=== PATIENT | male | born 1955 | race Two or more races ===

== ENCOUNTER 2019-02-18 16:30 | Inpatient (IN) | payer MEDICAID ==
[~2019-02-18] VITALS: Ht 170.2 cm; Wt 72.6 kg
[2019-02-18 20:13] LABS: CLARITY URINE CLEAR (CLEAR); COLOR URINE YELLOW (YELLOW); KETONES URINE TRACE (NEGATIVE); LEUKOCYTE ESTERASE URINE NEGATIVE (NEGATIVE); NITRITE URINE NEGATIVE (NEGATIVE); OCCULT BLOOD URINE NEGATIVE (NEGATIVE); PROTEIN URINE NEGATIVE (NEGATIVE); UROBILINOGEN URINE 0.2 E.U./dL (0.2-1.0)
[2019-02-18] MEDS ORDERED: SODIUM CHLORIDE 0.9% 1000ML BAG (SEPSIS BOLUS) IV ONE (20:30)
[2019-02-18] MEDS ORDERED: CEFTRIAXONE 1 G PREMIX 50 ML IV ONE (20:30)
[2019-02-18] MEDS ORDERED: ACETAMINOPHEN 325MG TABLET PO STA (20:30)
[2019-02-18 21:17] LABS: HEMOGLOBIN. 16.2 g/dL (14.0-18.0); MEAN CORPUSCULAR HEMOGLOBIN 30.4 pg (28.0-32.0); MEAN CORPUSCULAR VOLUME 86.3 fL (80.0-94.0); PLATELET 134 x1000/uL (130-400); RED BLOOD CELL COUNT 5.33 mill/uL (4.7-6.1); RED CELL DISTRIBUTION WIDTH 13.9 % (11.6-14.6)
[2019-02-18 21:24] LABS: CHLORIDE 101 mEq/L (98-107)
[2019-02-18 21:26] LABS: INR 1.1; PROTHROMBIN TIME 11.4 sec (9.6-11.0)
[2019-02-18 21:58] LABS: PLATELET ESTIMATE NORMAL
[2019-02-18] MEDS ORDERED: DEXAMETHASONE 10 MG/ML VIAL IV ONE (23:00)
[2019-02-18] MEDS ORDERED: MORPHINE SULFATE 4 MG/ML CPJ (NOT FOR IM USE) IV ONE (23:00)
[2019-02-18] MEDS ORDERED: CEFTRIAXONE 1 G PREMIX 50 ML IV NR (23:15)
[2019-02-19] MEDS ORDERED: ACYCLOVIR INJ 750 MG in DEXT 5% WATER 100 ML IV SCH (01:30)
[2019-02-19] MEDS: ACYCLOVIR IV SCH ×3 (02:07→17:08)
[2019-02-19] MEDS: DEXT 5% IV SCH ×3 (02:07→17:08)
[2019-02-19] MEDS: WATER IV SCH ×3 (02:07→17:08)
[2019-02-19] MEDS ORDERED: VANCOMYCIN 1500MG in DEXTROSE 5% WATER 250ML IV SCH (03:00)
[2019-02-19 03:50] VITALS: BP 145/88
[2019-02-19 04:00] VITALS: BP 145/88
[2019-02-19] MEDS ORDERED: LISI-604 MT (04:24)
[2019-02-19] MEDS ORDERED: ATOR20TA65 MT (04:24)
[2019-02-19] MEDS ORDERED: ONDANSETRON HCL 4MG/2ML INJ IV PRN (04:30)
[2019-02-19] MEDS ORDERED: MORPHINE SULFATE 4 MG/ML CPJ (NOT FOR IM USE) IV PRN (04:30)
[2019-02-19] MEDS ORDERED: ACYCLOVIR 5MG/ML SYR IV ONE (06:00)
[2019-02-19 08:00] VITALS: BP 143/93
[2019-02-19] MEDS: ACETAMINOPHEN 325MG TABLET PO PRN ×2 (11:40→20:48)
[2019-02-19 11:56] VITALS: BP 136/81
[2019-02-19 12:10] LABS: *AMPHETAMINES SCREEN URINE NEGATIVE (NEGATIVE); *BARBITURATES SCREEN URINE NEGATIVE (NEGATIVE); *BENZODIAZEPINES SCREEN URINE NEGATIVE (NEGATIVE); *COCAINE SCREEN URINE NEGATIVE (NEGATIVE); METHADONE URINE SCREEN NEGATIVE (NEGATIVE)
[2019-02-19 12:11] LABS: CANNABINOID URINE SCREEN NEGATIVE (NEGATIVE); OPIATES URINE SCREEN PRESUMTIVE POSITIVE (NEGATIVE); PHENCYCLIDINE URINE SCREEN NEGATIVE (NEGATIVE)
[2019-02-19] MEDS ORDERED: AMPICILLIN 2000MG in SODIUM CHLORIDE 0.9% 100ML IV SCH (12:30)
[2019-02-19] MEDS: CEFTRIAXONE 2 G in DEXTROSE 5% WATER 50 ML IV SCH ×2 (13:00→22:54)
[2019-02-19] MEDS ORDERED: SODIUM BICARBONATE 4% (2.4MEQ) 5ML VIAL IV ONE (13:08)
[2019-02-19] MEDS ORDERED: LIDOCAINE HCL 1% 20ML VIAL (Pyxis) INJ ONE (13:08)
[2019-02-19] MEDS: SODIUM CHLORIDE 0.9% 1,000 ML IV SCH (14:29)
[2019-02-19 16:00] VITALS: BP 124/83
[2019-02-19] MEDS: VANCOMYCIN 1250MG in DEXTROSE 5% WATER 250ML IV SCH (17:53)
[2019-02-19 20:00] VITALS: BP 127/82
[2019-02-19] MEDS ORDERED: CEFTRIAXONE 2 G in DEXTROSE 5% WATER 50 ML IV SCH (21:00)
[2019-02-20] VITALS (7 sets, daily range): BP systolic 102–136; BP diastolic 65–83
[2019-02-20] MEDS: ACYCLOVIR IV SCH ×3 (01:26→17:53)
[2019-02-20] MEDS: WATER IV SCH ×3 (01:26→17:53)
[2019-02-20] MEDS: DEXT 5% IV SCH ×3 (01:26→17:53)
[2019-02-20] MEDS: VANCOMYCIN 1250MG in DEXTROSE 5% WATER 250ML IV SCH ×2 (05:14→21:29)
[2019-02-20] MEDS: ACETAMINOPHEN 325MG TABLET PO PRN ×4 (05:31→20:26)
[2019-02-20 05:40] LABS: HEMATOCRIT. 46.9 % (42.0-52.0); HEMOGLOBIN. 16.2 g/dL (14.0-18.0); MEAN CORPUSCULAR HEMOGLOBIN 29.8 pg (28.0-32.0); MEAN CORPUSCULAR VOLUME 86.1 fL (80.0-94.0); PLATELET 87 x1000/uL (130-400); RED BLOOD CELL COUNT 5.45 mill/uL (4.7-6.1); RED CELL DISTRIBUTION WIDTH 14.1 % (11.6-14.6)
[2019-02-20 05:58] LABS: CHLORIDE 106 mEq/L (98-107)
[2019-02-20] MEDS: CEFTRIAXONE 2 G in DEXTROSE 5% WATER 50 ML IV SCH ×2 (08:54→20:26)
[2019-02-20 10:32] LABS: PLATELET ESTIMATE DECREASED
[2019-02-20] MEDS: SODIUM CHLORIDE 0.9% 1,000 ML IV SCH (16:40)
[2019-02-21] VITALS: BP 108/72
[2019-02-21] MEDS: WATER IV SCH ×2 (01:21→11:24)
[2019-02-21] MEDS: ACYCLOVIR IV SCH ×2 (01:21→11:24)
[2019-02-21] MEDS: DEXT 5% IV SCH ×2 (01:21→11:24)
[2019-02-21 04:00] VITALS: BP 123/83
[2019-02-21] MEDS: ACETAMINOPHEN 325MG TABLET PO PRN ×3 (04:15→18:19)
[2019-02-21 05:40] VITALS: BP 123/83
[2019-02-21] MEDS: SODIUM CHLORIDE 0.9% 1,000 ML IV SCH ×2 (05:42→20:32)
[2019-02-21 06:13] LABS: HEMATOCRIT. 46.6 % (42.0-52.0); HEMOGLOBIN. 16.1 g/dL (14.0-18.0); MEAN CORPUSCULAR HEMOGLOBIN 29.6 pg (28.0-32.0); MEAN CORPUSCULAR VOLUME 85.7 fL (80.0-94.0); MEAN PLATELET VOLUME 8.2 fl (7.4-10.4); RED BLOOD CELL COUNT 5.44 mill/uL (4.7-6.1); RED CELL DISTRIBUTION WIDTH 14.2 % (11.6-14.6)
[2019-02-21 08:01] LABS: PLATELET 41 x1000/uL (130-400)
[2019-02-21] MEDS: CEFTRIAXONE 2 G in DEXTROSE 5% WATER 50 ML IV SCH (08:20)
[2019-02-21] MEDS: VANCOMYCIN 1250MG in DEXTROSE 5% WATER 250ML IV SCH (09:08)
[2019-02-21 10:45] LABS: CHLORIDE 105 mEq/L (98-107)
[2019-02-21 11:38] VITALS: BP 115/75
[2019-02-21] MEDS ORDERED: POTASSIUM CHLORIDE 20MEQ TABLET SR PO NR (11:45)
[2019-02-21 16:00] VITALS: BP 129/83
[2019-02-21 16:43] LABS: ETHANOL BLOOD < 10 mg/dL
[2019-02-21 16:48] LABS: T4 FREE 1.13 ng/dL (0.76-1.46)
[2019-02-21 17:10] LABS: VITAMIN B12 SERUM 674 pg/mL (211-911)
[2019-02-21 17:18] LABS: FOLIC ACID (FOLATE) SERUM > 20.00 ng/mL (>5.38)
[2019-02-21] MEDS ORDERED: VANCOMYCIN 1 G PREMIX 200 ML IV SCH (18:00)
[2019-02-21 20:00] VITALS: BP 111/80
[2019-02-22] VITALS: BP 108/64
[2019-02-22 04:00] VITALS: BP 116/69
[2019-02-22 07:28] LABS: HEMATOCRIT. 48.5 % (42.0-52.0); HEMOGLOBIN. 16.5 g/dL (14.0-18.0); MEAN CORPUSCULAR HEMOGLOBIN 29.6 pg (28.0-32.0); MEAN CORPUSCULAR VOLUME 87.2 fL (80.0-94.0); MEAN PLATELET VOLUME 8.4 fl (7.4-10.4); RED BLOOD CELL COUNT 5.56 mill/uL (4.7-6.1); RED CELL DISTRIBUTION WIDTH 13.7 % (11.6-14.6)
[2019-02-22 07:35] LABS: CHLORIDE 107 mEq/L (98-107)
[2019-02-22 08:00] VITALS: BP 117/77
[2019-02-22 08:20] LABS: PLATELET 22 x1000/uL (130-400)
[2019-02-22 12:00] VITALS: BP 121/82
[2019-02-22 14:13] VITALS: BP 121/82
[2019-02-22 14:18] LABS: NUCLEATED RED BLOOD CELLS 2 /100 WBC; PLATELET ESTIMATE MARKEDLY DECREASED
== END 2019-02-22 16:35 | disposition home or self-care (01) | DRG 720 ==
LOC: ER 16:30 → 6EST 23:16 → EDBEDREQSVC 23:23 → EDBEDREQTM 23:23 → EDBEDREQ 23:23 → ENRESERV 02-19 02:53
PROVIDERS: ADMIT Internal Medicine; ATTEND Internal Medicine
PROC: 009U3ZX Drainage of Spinal Canal, Percutaneous Approach, Diagnostic (ICD-10-PCS; principal; 2019-02-19)
PROC: B01B1ZZ Fluoroscopy of Spinal Cord using Low Osmolar Contrast (ICD-10-PCS; 2019-02-19)
DX: A41.89 Other specified sepsis (principal); G92 Toxic encephalopathy; D69.6 Thrombocytopenia, unspecified; E87.1 Hypo-osmolality and hyponatremia; E78.5 Hyperlipidemia, unspecified; I10 Essential (primary) hypertension; E78.00 Pure hypercholesterolemia, unspecified; D72.810 Lymphocytopenia; B34.9 Viral infection, unspecified; Z79.899 Other long term (current) drug therapy; A87.9 Viral meningitis, unspecified
CPT/HCPCS: 36415; 62270; 70551; 71045; 77003; 80048; 80202; 80305; 80320; 82140; 82607; 82746; 83036; 83605; 84145; 84439; 84443; 84481; 86703; 86790; 87070; 87207; 87804; 93005; 93970; 96365; 96367; 96375; 99285; J0133; J0290; J0696; J1100; J2270; J3370; J3490; J7030; J7050; J7060; G0480

== ENCOUNTER 2019-10-23 13:24 | Emergency (ER) | payer MEDICAID ==
[~2019-10-23] VITALS: Ht 167.6 cm; Wt 77.0 kg
[~2019-10-23 13:24] MED LIST: ATOR20TA65 MT; LISI-604 MT
[2019-10-23] MEDS ORDERED: TETRACAINE 0.5% OPHTH DROPS 4ML LEFTEYE ONE (16:30)
[2019-10-23] MEDS ORDERED: FLUORESCEIN SODIUM 1MG/STRIP LEFTEYE ONE (16:30)
[2019-10-23 17:12] VITALS: BP 159/86
== END 2019-10-23 17:14 | disposition home or self-care (01) ==
LOC: ER 14:43
DX: H11.32 Conjunctival hemorrhage, left eye (principal); I10 Essential (primary) hypertension; E78.00 Pure hypercholesterolemia, unspecified
CPT/HCPCS: 99282

== ENCOUNTER 2020-08-14 18:34 | Emergency (ER) | payer MEDICAID ==
[~2020-08-14] VITALS: Ht 167.6 cm; Wt 73.0 kg
[2020-08-14 20:38] LABS: BASOPHILS % 0.2 % (0.0-2.0); EOSINOPHILS % 0.1 % (0.0-5.0); LYMPHOCYTES % 7.6 % (20.0-50.0); MEAN CORPUSCULAR HEMOGLOBIN 30.1 pg (28.0-32.0); MEAN PLATELET VOLUME 7.9 fl (7.4-10.4); MONOCYTES % 2.8 % (2.0-8.0); NEUTROPHILS % 89.3 % (40.0-76.0); PLATELET 199 x1000/uL (130-400); RED BLOOD CELL COUNT 5.29 mill/uL (4.7-6.1); RED CELL DISTRIBUTION WIDTH 13.6 % (11.6-14.6)
[2020-08-14 20:42] LABS: CHLORIDE 104 mEq/L (98-107)
[2020-08-14 21:56] LABS: CLARITY URINE CLEAR (CLEAR); COLOR URINE YELLOW (YELLOW); KETONES URINE NEGATIVE (NEGATIVE); LEUKOCYTE ESTERASE URINE NEGATIVE (NEGATIVE); NITRITE URINE NEGATIVE (NEGATIVE); OCCULT BLOOD URINE 2+ (NEGATIVE); PH URINE 6.5 (4.5-8.0); PROTEIN URINE NEGATIVE (NEGATIVE); SPECIFIC GRAVITY URINE 1.009 (1.005-1.030); UROBILINOGEN URINE 0.2 E.U./dL (0.2-1.0)
[2020-08-14 22:44] VITALS: BP 124/74
== END 2020-08-14 22:44 | disposition home or self-care (01) ==
LOC: ER 18:34
DX: N40.1 Benign prostatic hyperplasia with lower urinary tract symptoms (principal); R33.8 Other retention of urine; I10 Essential (primary) hypertension; E78.00 Pure hypercholesterolemia, unspecified
CPT/HCPCS: 36415; 51702; 80053; 81003; 85025; 93005; 99284

== ENCOUNTER 2020-08-17 14:43 | Emergency (ER) | payer MEDICAID ==
[~2020-08-17] VITALS: Ht 162.6 cm; Wt 72.0 kg
[2020-08-17 17:08] LABS: CLARITY URINE CLEAR (CLEAR); COLOR URINE YELLOW (YELLOW); KETONES URINE 2+ (NEGATIVE); LEUKOCYTE ESTERASE URINE 1+ (NEGATIVE); NITRITE URINE NEGATIVE (NEGATIVE); OCCULT BLOOD URINE 3+ (NEGATIVE); PROTEIN URINE 2+ (NEGATIVE); SPECIFIC GRAVITY URINE 1.013 (1.005-1.030); UROBILINOGEN URINE 0.2 E.U./dL (0.2-1.0)
[2020-08-17 17:59] VITALS: BP 159/90
== END 2020-08-17 18:02 | disposition home or self-care (01) ==
LOC: ER 14:43
DX: T83.018A Breakdown (mechanical) of other urinary catheter, initial encounter (principal); Y84.6 Urinary catheterization as the cause of abnormal reaction of the patient, or of later complication, without mention of misadventure at the time of the procedure; Y92.9 Unspecified place or not applicable
CPT/HCPCS: 81003; 93005; 99284

== ENCOUNTER 2020-08-18 00:01 | Emergency (ER) | payer MEDICAID ==
[~2020-08-18] VITALS: Ht 167.6 cm; Wt 71.0 kg
[2020-08-18 01:45] LABS: CLARITY URINE CLEAR (CLEAR); COLOR URINE ORANGE (YELLOW); KETONES URINE NEGATIVE (NEGATIVE); LEUKOCYTE ESTERASE URINE 2+ (NEGATIVE); NITRITE URINE NEGATIVE (NEGATIVE); OCCULT BLOOD URINE 3+ (NEGATIVE); PH URINE 5.5 (4.5-8.0); PROTEIN URINE 2+ (NEGATIVE); SPECIFIC GRAVITY URINE 1.013 (1.005-1.030); UROBILINOGEN URINE 0.2 E.U./dL (0.2-1.0)
[2020-08-18 02:23] VITALS: BP 145/97
== END 2020-08-18 02:25 | disposition home or self-care (01) ==
LOC: ER 00:01
DX: N39.0 Urinary tract infection, site not specified (principal); E78.00 Pure hypercholesterolemia, unspecified; I10 Essential (primary) hypertension; Z98.890 Other specified postprocedural states; Z46.6 Encounter for fitting and adjustment of urinary device
CPT/HCPCS: 81003; 99283